=== PATIENT | female | born 1940 | race Caucasian/White ===

== ENCOUNTER 2019-05-01 13:55 | Emergency (ER) | payer MEDICARE, OTHER ==
[2019-05-01 14:01] VITALS: Wt 61.4 kg
[2019-05-01] MEDS ORDERED: HYDROCODON-ACE1 EA10 PO (16:06)
[2019-05-01 16:53] VITALS: BP 155/86
== END 2019-05-01 16:54 | disposition home or self-care (01) ==
LOC: D.ER 13:55
DX: S82.52XA Displaced fracture of medial malleolus of left tibia, initial encounter for closed fracture (principal); X58.XXXA Exposure to other specified factors, initial encounter